=== PATIENT | female | born 1950 | race Caucasian/White ===

== ENCOUNTER 2024-02-19 07:33 | Inpatient (IN) | payer MEDICARE, OTHER ==
[~2024-02-19] VITALS: Ht 162.6 cm; Wt 80.0 kg
[2024-02-19] MEDS ORDERED: LIDOCAINE 2%-EPI 1:100,000 30 ML VIAL ONE (08:21)
[2024-02-19] MEDS ORDERED: dexaMETHasone SOD PHOSPHATE 2 ML ONE (08:21)
[2024-02-19] MEDS ORDERED: VANCOMYCIN 1 GM VIAL ONE (08:21)
[2024-02-19] MEDS ORDERED: OXYMETAZOLINE HCL NASAL SPRAY 30 ML BOTTLE NS ONE (08:21)
[2024-02-19] MEDS ORDERED: ROCURONIUM BROMIDE 50 MG/5 ML ONE (08:49)
[2024-02-19] MEDS ORDERED: LABETALOL HCL IV 100MG VIAL ONE (09:47)
[2024-02-19] MEDS ORDERED: hydrALAZINE HCL IV 20 MG VIAL ONE (09:47)
[2024-02-19 11:37] VITALS: BP 98/61; TEMP 98.2; O2SAT 97
[2024-02-19 12:00] VITALS: BP 118/65; TEMP 97.5; O2SAT 98
[2024-02-19 13:00] VITALS: BP 123/69; TEMP 97.5; O2SAT 95
[2024-02-19] MEDS ORDERED: ONDANSETRON HCL/PF 4 MG/2 ML VIAL IV PRN (13:00)
[2024-02-19] MEDS ORDERED: IV NS 0.9% 1,000 ML IV PRN (13:00)
[2024-02-19] MEDS ORDERED: HYDROMORPHONE 1 MG/1 ML DISP.SYRIN IV PRN (13:00)
[2024-02-19] MEDS ORDERED: MAGN400T26 PO (13:21)
[2024-02-19] MEDS ORDERED: EDARBYCLOR PO (13:21)
[2024-02-19] MEDS ORDERED: ERGO500093 PO (13:21)
[2024-02-19] MEDS ORDERED: NEBI20TA2 PO (13:21)
[2024-02-19] MEDS ORDERED: ASPI-1420 PO (13:21)
[2024-02-19] MEDS ORDERED: AZIL40TA PO (13:21)
[2024-02-19] MEDS ORDERED: ROSU10TA29 PO (13:21)
[2024-02-19] MEDS: VANCOMYCIN 1 GM in IV D5W 250ml IV SCH (14:29)
[2024-02-19 16:00] VITALS: BP 116/69; TEMP 98.1; O2SAT 95
[2024-02-19 20:00] VITALS: BP 134/70; TEMP 98.4; O2SAT 94
[2024-02-19] MEDS: ACETAMINOPHEN 325 MG TABLET PO PRN (20:44)
[2024-02-20 08:00] VITALS: BP 114/61; TEMP 97.7; O2SAT 96
[2024-02-20] MEDS ORDERED: EDARBYCLOR XX SCH (08:00)
[2024-02-20] MEDS ORDERED: ERGOCALCIFEROL (VITAMIN D 2) 50,000 UNIT CAPSULE PO SCH ×2 (08:00→17:09)
[2024-02-20] MEDS ORDERED: EDARBI 40 MG XX SCH (08:00)
[2024-02-20] MEDS: MAGNESIUM OXIDE 400 MG TABLET PO SCH (09:00)
[2024-02-20] MEDS: ASPIRIN EC 81 MG TABLET.DR PO SCH (09:00)
[2024-02-20] MEDS: METOPROLOL TARTRATE 50 MG TABLET PO SCH (09:00)
[2024-02-20] MEDS: ATORVASTATIN 40 MG TABLET PO SCH (09:00)
[2024-02-20 16:22] VITALS: BP 130/68; TEMP 97.7; O2SAT 97
== END 2024-02-20 18:07 | disposition home or self-care (01) | DRG 908 ==
LOC: DS 07:33 → MED 10:56
PROVIDERS: ADMIT Nurse Practitioner Acute Care; ATTEND Nurse Practitioner Acute Care
PROC: 0WC40ZZ Extirpation of Matter from Upper Jaw, Open Approach (ICD-10-PCS; principal; 2024-02-20)
PROC: 0NUR07Z Supplement Maxilla with Autologous Tissue Substitute, Open Approach (ICD-10-PCS; 2024-02-20)
PROC: 0NUV07Z Supplement Left Mandible with Autologous Tissue Substitute, Open Approach (ICD-10-PCS; 2024-02-20)
PROC: 0NSR04Z Reposition Maxilla with Internal Fixation Device, Open Approach (ICD-10-PCS; 2024-02-20)
PROC: 0NST04Z Reposition Right Mandible with Internal Fixation Device, Open Approach (ICD-10-PCS; 2024-02-20)
PROC: 0NBV0ZX Excision of Left Mandible, Open Approach, Diagnostic (ICD-10-PCS; 2024-02-20)
PROC: 0NBR0ZX Excision of Maxilla, Open Approach, Diagnostic (ICD-10-PCS; 2024-02-20)
PROC: 0NBT0ZX Excision of Right Mandible, Open Approach, Diagnostic (ICD-10-PCS; 2024-02-20)
PROC: 0NSV04Z Reposition Left Mandible with Internal Fixation Device, Open Approach (ICD-10-PCS; 2024-02-20)
DX: T86.831 Bone graft failure (principal); S02.40DK Maxillary fracture, left side, subsequent encounter for fracture with nonunion; S02.609K Fracture of mandible, unspecified, subsequent encounter for fracture with nonunion; M27.2 Inflammatory conditions of jaws; Y83.8 Other surgical procedures as the cause of abnormal reaction of the patient, or of later complication, without mention of misadventure at the time of the procedure; Y92.009 Unspecified place in unspecified non-institutional (private) residence as the place of occurrence of the external cause; M27.40 Unspecified cyst of jaw; I83.90 Asymptomatic varicose veins of unspecified lower extremity; M19.90 Unspecified osteoarthritis, unspecified site; E78.5 Hyperlipidemia, unspecified; I10 Essential (primary) hypertension; Z82.49 Family history of ischemic heart disease and other diseases of the circulatory system; Z95.0 Presence of cardiac pacemaker; I08.0 Rheumatic disorders of both mitral and aortic valves; J32.0 Chronic maxillary sinusitis; X58.XXXD Exposure to other specified factors, subsequent encounter
CPT/HCPCS: A4223; C1713; G0378; J0360; J0690; J1100; J2704; J3370; J3490; J7060

== ENCOUNTER 2024-09-02 07:54 | Inpatient (IN) | payer MEDICARE, OTHER ==
[~2024-09-02] VITALS: Ht 162.6 cm; Wt 79.4 kg
[~2024-09-02 07:54] MED LIST: ASPI-1420 PO; AZIL40TA PO; EDARBYCLOR PO; ERGO500093 PO; FENTANYL PF 100MCG/2ML AMPUL ONE; MAGN400T26 PO; MIDAZOLAM HCL 2 MG/2ML VIAL ONE; NEBI20TA2 PO; ROSU10TA29 PO
[2024-09-02] MEDS ORDERED: dexaMETHasone SOD PHOSPHATE 0 ML ONE (08:32)
[2024-09-02] MEDS ORDERED: VANCOMYCIN 1 GM VIAL ONE ×2 (08:33→09:25)
[2024-09-02] MEDS ORDERED: dexaMETHasone SOD PHOSPHATE 2 ML ONE (09:24)
[2024-09-02] MEDS ORDERED: LIDOCAINE 2%-EPI 1:100,000 30 ML VIAL ONE (09:24)
[2024-09-02] MEDS ORDERED: OXYMETAZOLINE HCL NASAL SPRAY 30 ML BOTTLE NS ONE (09:25)
[2024-09-02 11:45] VITALS: BP 113/64; TEMP 97.9; O2SAT 97
[2024-09-02] MEDS: IV NS 0.9% 1,000 ML IV PRN (12:22)
[2024-09-02] MEDS ORDERED: HYDROMORPHONE 1 MG/1 ML DISP.SYRIN IV PRN (12:30)
[2024-09-02] MEDS ORDERED: ACETAMINOPHEN 325 MG TABLET PO PRN (12:30)
[2024-09-02] MEDS ORDERED: ONDANSETRON HCL/PF 4 MG/2 ML VIAL IV PRN (12:30)
[2024-09-02] MEDS ORDERED: MAGNESIUM HYDROXIDE 30 ML UDC PO PRN (15:30)
[2024-09-02 16:00] VITALS: BP 135/71; TEMP 97.9; O2SAT 97
[2024-09-02 20:00] VITALS: BP 105/61; TEMP 97.7; O2SAT 97
[2024-09-02] MEDS: METOPROLOL TARTRATE 50 MG TABLET PO SCH (21:00)
[2024-09-02] MEDS: VANCOMYCIN 1 GM in IV D5W 250ml IV SCH (23:09)
[2024-09-03 07:00] VITALS: BP 116/57; TEMP 97.9; O2SAT 100
[2024-09-03 07:47] LABS: CALCIUM, SERUM 8.5 mg/dL (8.5-10.1); CREATININE 0.9 mg/dL (0.6-1.3); PHOSPHORUS 4.1 mg/dL (2.5-4.9); POTASSIUM 4.1 mmol/L (3.5-5.1)
[2024-09-03 08:01] LABS: BASOPHILS % (AUTO) 0.1 % (0.0-2.0); HEMATOCRIT 33 % (33-45); HEMOGLOBIN 11.2 g/dL (11.5-14.8); LYMPHOCYTES # (AUTO) 1.1 K/uL (0.8-4.8); LYMPHOCYTES % (AUTO) 12.1 % (20.0-44.0); MEAN CORPUSCULAR HEMOGLOBIN 30 PG (26.0-33.0); MEAN CORPUSCULAR HGB CONC 34 g/dl (31.0-36.0); MEAN CORPUSCULAR VOLUME 89 fL (82-100); MONOCYTES # (AUTO) 0.4 K/uL (0.1-1.30); MONOCYTES % (AUTO) 4.7 % (2.0-12.0); NEUTROPHILS # (AUTO) 7.9 K/uL (1.8-8.9); NEUTROPHILS % (AUTO) 83.1 % (43.0-81.0); PLATELET COUNT (AUTO) 185 K/uL (150-450); RED CELL DISTRIBUTION WIDTH 14.2 % (11.5-15.0); WHITE BLOOD COUNT (AUTO) 9.5 K/uL (4.3-11.0)
[2024-09-03 08:32] VITALS: BP 116/57
[2024-09-03] MEDS: ASPIRIN EC 81 MG TABLET.DR PO SCH (08:32)
[2024-09-03] MEDS: ATORVASTATIN 40 MG TABLET PO SCH (08:32)
[2024-09-03] MEDS: PANTOPRAZOLE 40 MG TABLET.DR PO SCH (08:33)
== END 2024-09-03 13:18 | disposition home or self-care (01) | DRG 497 ==
LOC: DS 07:54 → MED 11:53
PROVIDERS: ADMIT Nurse Practitioner Family
PROC: 0N5R0ZZ Destruction of Maxilla, Open Approach (ICD-10-PCS; principal; 2024-09-02)
PROC: 0NSR04Z Reposition Maxilla with Internal Fixation Device, Open Approach (ICD-10-PCS; principal; 2024-09-02)
PROC: 0NPW04Z Removal of Internal Fixation Device from Facial Bone, Open Approach (ICD-10-PCS; principal; 2024-09-02)
PROC: 0N5T0ZZ Destruction of Right Mandible, Open Approach (ICD-10-PCS; principal; 2024-09-02)
DX: T84.69XA Infection and inflammatory reaction due to internal fixation device of other site, initial encounter (principal); I10 Essential (primary) hypertension; I08.0 Rheumatic disorders of both mitral and aortic valves; E78.5 Hyperlipidemia, unspecified; Z79.82 Long term (current) use of aspirin; Z79.899 Other long term (current) drug therapy; Z95.0 Presence of cardiac pacemaker; Y83.8 Other surgical procedures as the cause of abnormal reaction of the patient, or of later complication, without mention of misadventure at the time of the procedure; Y92.9 Unspecified place or not applicable; K12.30 Oral mucositis (ulcerative), unspecified; K13.70 Unspecified lesions of oral mucosa; M89.38 Hypertrophy of bone, other site
CPT/HCPCS: 36415; 80048-TC; 83735-TC; 84100-TC; 85025-TC; A4223; A4338; G0378; J0330; J1100; J1885; J2250; J2405; J2704; J3010; J3370; J3490; J7030; J7040; J7060